=== PATIENT | female | born 1995 | race Caucasian/White ===

== ENCOUNTER 2018-01-05 08:00 | Emergency (ER) | payer MEDICAID ==
[2018-01-05 08:02] VITALS: BMI 26.2
--- NOTE | 2018-01-05 08:35 | ED PDOC ---
Arrival/HPI - General Historian: Patient, Parent - History of Present Illness Narrative History of Present Illness (Text): 01/05/18 08:28 22 y o female with past medical history of migraines (on amitriptyline) and dysmenorrhea (now controlled with OCPs), presents to the ED s/p syncopal episode. States that she was up this am because her grandmother was being taken by ambulance from home to the ER. States she jumped down from top bunk to lower bunk and started to feel lightheaded. (+) Hearing loss before syncopal episode. Pt states she blacked out for a few seconds but denied hitting her head or headache. Syncopal episode was witnessed by father at home, who states that pt's lips turned white, her hands started to feel cold, and she passed out while sitting in a chair. Pt states all of her symptoms have resolved, except for feeling a little lightheaded currently. Denies fever, chills, chest pain, sob, n/v/d/c, abd pain, bowel/bladder incontinence, urinary complaints, tremors, or other symptoms. Pt states she had episode that was similar to this 2 y ago, was brought to the ER, and was told that it was due to her blood pressure being too low. Past medial hx: Migraines, Dysmenorrhea PSurgHx: denies Allergies: NKDA Meds: Amitriptyline 10 mg (2 pills at bedtime), OCP Fam hx: (+) cardiac hx of [place], HLD, HTN in father and paternal grandmother Soc hx: denies smoking, EtOH or illicit drug use; LMP 12/31/17, currently on last day of period, states bleeding is very light PMD: none 01/05/18 08:44 <Chaim Nielsen - Last Filed: 01/05/18 10:57> - History of Present Illness Time/Duration: Prior to Arrival Symptom Onset: Sudden Symptom Course: Improving Context: Home <Herber Zamorano - Last Filed: 01/05/18 13:08> - General Chief Complaint: Syncope Past Medical History - Cardiac Hx Cardiac Disorders: No - Neurological Hx Migraine: Yes - HEENT Hx HEENT Disorder: No - Renal Hx Renal Disorder: No - Endocrine/Metabolic Hx Endocrine Disorders: No - Hematological/Oncological Hx Blood Disorders: No - Integumentary Hx Dermatological Disorder: No - Musculoskeletal/Rheumatological Hx Musculoskeletal Disorders: No - Gastrointestinal Hx Gastrointestinal Disorders: No - Genitourinary/Gynecological Hx Genitourinary Disorders: No - Psychiatric Hx Psychophysiologic Disorder: No Hx Substance Use: No - Anesthesia Hx Anesthesia: No <Chaim Nielsen - Last Filed: 01/05/18 10:57> - Provider Review Nursing Documentation Reviewed: Yes <Herber Zamorano - Last Filed: 01/05/18 13:08> Family/Social History Smoking Status: Never Smoked Hx Alcohol Use: No Hx Substance Use: No <Chaim Nielsen - Last Filed: 01/05/18 10:57> - Physician Review Nursing Documentation Reviewed: Yes Family/Social History: Hypertension, CAD/[place] <Herber Zamorano - Last Filed: 01/05/18 13:08> Allergies/Home Meds <Chaim Nielsen - Last Filed: 01/05/18 10:57> <Herber Zamorano - Last Filed: 01/05/18 13:08> Allergies/Adverse Reactions: Allergies No Known Allergies Allergy (Verified 01/19/15 14:23) Home Medications: Home Meds Medication Instructions Recorded Confirmed Norethindrone-E.estradiol-Iron 1 tab PO DAILY 01/05/18 01/05/18 [Junel Fe 02/24 20 Mcg-75 mg-1 mg] RX: Amitriptyline HCl 10 mg PO HS 01/05/18 01/05/18 Review of Systems - Review of Systems Constitutional: absent: Fatigue, Weight Change, Fevers Eyes: absent: Vision Changes, Photophobia Respiratory: absent: SOB, Cough Cardiovascular: Syncope. absent: Chest Pain, Palpitations, Edema, PETTY Gastrointestinal: absent: Abdominal Pain, Stool Changes, Constipation, Diarrhea, Nausea, Vomiting, Anorexia Genitourinary Female: absent: Dysuria, Frequency, Hematuria Neurological: Dizziness. absent: Headache, Seizure <Chaim Nielsen - Last Filed: 01/05/18 10:57> - Physician Review All systems were reviewed & negative as marked: Yes <Herber Zamorano - Last Filed: 01/05/18 13:08> Physical Exam Vital Signs Temp Pulse Resp BP Pulse Ox 01/05/18 08:00 97.8 F 81 18 104/55 L 100 Temperature: Afebrile Blood Pressure: Hypotensive Pulse: Regular Respiratory Rate: Normal Appearance: Positive for: Well-Appearing, Non-Toxic, Comfortable Pain Distress: None Mental Status: Positive for: Alert and Oriented X 3 Finger Stick Blood Glucose: 74 - Systems Exam Head: Present: Atraumatic, Normocephalic Pupils: Present: PERRL Extroacular Muscles: Present: EOMI Conjunctiva: Present: Normal Ears: Present: NORMAL TM. No: Erythema, Fluid Mouth: Present: Moist Mucous Membranes Pharnyx: No: ERYTHEMA, EXUDATE Neck: Present: Normal Range of Motion. No: MIDLINE TENDERNESS, JVD, Lymphadenopathy Respiratory/Chest: Present: Clear to Auscultation, Good Air Exchange. No: Respiratory Distress, Accessory Muscle Use, Wheezes, Rales, Rhonchi Cardiovascular: Present: Regular Rate and Rhythm, Normal S1, S2. No: Murmurs, Rub, Gallop Abdomen: Present: Normal Bowel Sounds. No: Tenderness, Distention, Mass/Organomegaly Upper Extremity: Present: Normal Inspection, Normal ROM, NORMAL PULSES, Neurovascularly Intact, Capillary Refill < 2s, Norm 2-Pt Discrimination. No: Cyanosis, Edema, Temperature Abnormalties Lower Extremity: Present: Normal Inspection, NORMAL PULSES, Normal ROM, Neurovascularly Intact, Capillary Refill < 2 s. No: Edema, CALF TENDERNESS, Temperature Abnormalties Neurological: Present: GCS=15, CN II-XII Intact, Speech Normal, Motor Func Grossly Intact, Normal Sensory Function, Normal Cerebellar Funct, Norm Deep Tendon Reflexes, Memory Normal, Normal 2Pt Descrimination Skin: Present: Warm, Dry, Normal Color. No: Rashes Psychiatric: Present: Alert, Oriented x 3, Normal Insight, Normal Concentration <Chaim Nielsen - Last Filed: 01/05/18 10:57> Vital Signs Reviewed: Yes Vital Signs Temp Pulse Resp BP Pulse Ox 01/05/18 08:00 97.8 F 81 18 104/55 L 100 <Herber Zamorano - Last Filed: 01/05/18 13:08> Medical Decision Making ED Course and Treatment: 01/05/18 08:39 A: 22 y o female w/ past medical hx of migraines (on amitriptyline) and dysmenorrhea (now controlled on OCPs), presents with syncopal episode. P: EKG NSR at 78 bpm, no St-T wave changes noted. POC glucose 74. Pending CBC, CMP, Mg, P, U/a, urine test, UDS. Will continue to monitor. 01/05/18 10:48 Reassessed patient. States she is feeling better, able to ambulate without con cerns. Mildly elevated AST/ALT, likely 2/2 to home med Amitriptyline. Stable for discharge to home at this time. Can follow up with PMD in 2-3 days after discharge, pt states she is interested in establishing care with Dr. Mitchell. Instructed to return to ED if symptoms recur or worsen. All questions and concerns addressed with pt and she is agreeable to plan. Re-evaluation Time: 10:48 Reassessment Condition: Improved - Lab Interpretations Lab Results: Lab Results 01/05/18 08:15: POC Glucose (mg/dL) 74 I have reviewed the lab results: Yes - EKG Interpretation EKG Interpretation (Text): 01/05/18 09:17 Normal sinus rhythm at [address]-t wave changes. Interpreted by ED Physician: Yes Type: 12 lead EKG Comparison: No previous EKG avail. <Chaim Nielsen - Last Filed: 01/05/18 10:57> ED Course and Treatment: 01/05/18 09:01 Seen and examined with the resident. Our history and physical exam reveals a young woman who had a syncopal episode this morning. Patient has had 2 previous syncopal episodes. Workup included a normal stress test and normal echocardiogram. She has not had a Holter monitor. She feels well at this time. There was no seizure activity according to the father. There was a lot of commotion in her house this morning with a syncopal episode occurred. This is similar to the previous 2 episodes. She has a normal exam. No chest pain palpitations or dyspnea. No nausea or vomiting. Plan: -- EKG -- Labs -- HCG, Qualitative urine, Urinalysis -- Reassess and disposition - Lab Interpretations Lab Results: 01/05/18 08:37 01/05/18 08:37 Lab Results 01/05/18 08:37: Sodium 139, Potassium 4.4, Chloride 108 H, Carbon Dioxide 25, Anion Gap 10, BUN 16, Creatinine 0.8, Est GFR ( Amer) > 60, Est GFR (Non-Af Amer) > 60, Random Glucose 90, Calcium 8.6, Phosphorus 4.1, Magnesium 1.9, Total Bilirubin 0.2, AST 40 H, ALT 62 H, Alkaline Phosphatase 74, Total Pr otein 6.7, Albumin 3.7, Globulin 3.0, Albumin/Globulin Ratio 1.2 01/05/18 08:37: WBC 7.0, RBC 4.50, Hgb 12.7, Hct 37.7, MCV 83.8, MCH 28.2, MCHC 33.7, RDW 13.4, Plt Count 249, MPV 9.6, Gran % 43.7 L, Lymph % (Auto) 47.4 H, [place] % (Auto) 7.6 H, Eos % (Auto) 1.0 L, Baso % (Auto) 0.3, Gran # 3.07, Lymph # (Auto) 3.3, [place] # (Auto) 0.5, Eos # (Auto) 0.1, Baso # (Auto) 0.02 01/05/18 08:30: Urine Color Yellow, Urine Appearance Clear, Urine pH 6.0, Ur S pecific [place] >= 1.030, Urine Protein Negative, Urine Glucose (UA) Negative, Urine Ketones Negative, Urine Blood Negative, Urine Nitrate Negative, Urine Bilirubin Negative, Urine Urobilinogen 0.2, Ur Leukocyte Esterase Negative, Urine HCG, Qual Negative 01/05/18 08:15: POC Glucose (mg/dL) 74 <Herber Zaomrano - Last Filed: 01/05/18 13:08> - PA / DIE FINISHER / Resident Statement ROMEL has reviewed & agrees with the documentation as recorded. ROMEL has examined the patient and agrees with the treatment plan. - Scribe Statement The provider has reviewed the documentation as recorded by the Nicola Curry Provider Priyaibshandra Attestation: All medical record entries made by the Priyaibshandra were at my direction and personally dictated by me. I have reviewed the chart and agree that the record accurately reflects my personal performance of the history, physical exam, medical decision making, and the department course for this patient. I have also personally directed, reviewed, and agree with the discharge instructions and disposition. <Herber Zamorano - Last Filed: 01/05/18 13:08> Disposition/Present on Arrival - Present on Arrival Any Indicators Present on Arrival: No History of DVT/PE: No History of Uncontrolled Diabetes: No Urinary Catheter: No History of Decub. Ulcer: No History Surgical Site Infection Following: None - Disposition Have Diagnosis and Disposition been Completed?: Yes Disposition Time: 10:56 Patient Plan: Discharge <Chaim Nielsen - Last Filed: 01/05/18 10:57> <Herber Zamorano - Last Filed: 01/05/18 13:08> - Disposition Diagnosis: Vasovagal syncope Disposition: HOME/ ROUTINE Condition: IMPROVED Discharge Instructions (ExitCare): Vasovagal Response (DC), Syncope (ED) Print Language: TURKMEN Additional Instructions: Please follow up with your primary care physician within 2-3 days after discharge. Should your symptoms recur or worsen, please call your primary care physician or report to your nearest emergency department. Referrals: Christian Mitchell, [Staff Provider] - Follow up with primary Forms: [employer] (Nigerian)
[2018-01-05 08:54] LABS: HEMOGLOBIN 12.7 g/dL (12.0-16.0); MEAN CELL VOLUME 83.8 fl (80.0-105.0); MEAN CORPUSCULAR HEMOGLOBIN 28.2 pg (25.0-35.0); RBC 4.5 10^6/uL (3.5-6.1)
[2018-01-05 08:54] LABS: URINE BILIRUBIN NEGATIVE (NEGATIVE); URINE BLOOD NEGATIVE (NEGATIVE); URINE GLUCOSE (UA) NEGATIVE (NEGATIVE); URINE LEUKOCYTE ESTERASE NEGATIVE Leu/uL (NEGATIVE); URINE PROTEIN NEGATIVE mg/dL (<30 mg/dL); URINE UROBILINOGEN 0.2 E.U./dL (<1 E.U./dL)
[2018-01-05 08:55] LABS: BASO # 0.02 K/mm3 (0.0-2.0); BASO % 0.3 % (0.0-3.0); EOS # 0.1 (0.0-0.7); GRAN # 3.07 (1.4-6.5); GRAN % 43.7 % (50.0-68.0); LYMPH # 3.3 (1.2-3.4); LYMPH % 47.4 % (22.0-35.0); MEAN CORPUSCULAR HGB CONC 33.7 g/dl (31.0-37.0); MEAN PLATELET VOLUME 9.6 fl (7.0-11.0); MONO # 0.5 (0.1-0.6); MONO % 7.6 % (1.0-6.0); RED CELL DISTRIBUTION WIDTH 13.4 % (11.5-14.5)
[2018-01-05 08:57] LABS: URINE APPEARANCE CLEAR (CLEAR); URINE COLOR YELLOW (YELLOW)
[2018-01-05 08:58] LABS: HCG,QUALITATIVE URINE NEGATIVE (NEGATIVE)
[2018-01-05 09:00] LABS: ALB/GLOB RATIO 1.2 (1.1-1.8); ALBUMIN 3.7 g/dL (3.0-4.8); ALT/SGPT 62 U/L (7-56); AST/SGOT 40 U/L (14-36); BLOOD UREA NITROGEN 16 mg/dL (7-21); CALCIUM 8.6 mg/dL (8.4-10.5); GFR NON-AFRICAN AMERICAN > 60
[2018-01-05 10:21] VITALS: RESP 16; TEMP 98.1; O2SAT 99
[2018-01-05 10:38] LABS: BARBITURATES, UR NEGATIVE (NEGATIVE); BENZODIAZEPINES, UR NEGATIVE (NEGATIVE); OPIATES, UR NEGATIVE (NEGATIVE); PHENCYCLIDINE, UR NEGATIVE (NEGATIVE)
[2018-01-05 11:21] VITALS: BP 112/80; PULSE 75
--- NOTE | 2018-01-05 18:29 | CARD ---
APPROVED REPORT Date of service: 01/05/2018 EKG Measurement Heart [id number] <Conclusion> Normal sinus rhythm Normal ECG
== END 2018-01-05 10:55 | disposition home or self-care (01) ==
LOC: ED 08:00
DX: R55 Syncope and collapse (principal); Z82.49 Family history of ischemic heart disease and other diseases of the circulatory system